=== PATIENT | female | born 1960 | race Caucasian/White ===

== ENCOUNTER → 2016-06-03 | Outpatient (CLI) | payer BC ==
[~2016-06-03] MED LIST: CLONIDINE PO; HCTZ PO; JINTELI 1 MG-51 EACH PO; LORTAB 7.5-5001 TAB PO; LOSARTAN-HCTZ1 EACH PO; MECLIZINE HCL12.5 MG PO; MOBIC PO; PROTONIX PO; ZYRTEC PO
--- NOTE | ~2016-06-03 | US6 ---
[facility] A Service of [facility] RADIOLOGY TEXT RESULTS PATIENT: JENISE WATKINS LOCATION: [facility] : 64 UNIT #: [id number] AGE: [address]: Divine Guy MD SEX: F ORDER DR: [id number] [address] [id number] [id number] O MR#: [id number] Acc #: [id number] NAME: JENISE WATKINS : 1960 SEX: F STUDY DATE/TIME: 06/03/2016 9:17 UNIT: [facility] ROOM: STUDY DESCRIPTION: US Abdominal Limited Attending Physician: Divine Guy M.D. Referring Physician: Divine Guy M.D. Ordering Physician: Divine Guy M.D. Primary Care Physician: Divine Guy M.D. MEDICAL IMAGING REPORT This report is preliminary unless electronic signature is present. EXAM Gallbladder ultrasound 06/03/2016 HISTORY Right upper quadrant abdominal pain and epigastric pain with nausea, vomiting and diarrhea for 2 months. FINDINGS Ultrasound examination of the gallbladder is negative. There is no cholelithiasis, gallbladder wall thickening, or bile duct dilatation. The visualized liver is negative. IMPRESSION Negative gallbladder ultrasound examination. Dictated by... Rolando Hernandez M.D. THIS IS AN ELECTRONICALLY VERIFIED REPORT Rolando Hernandez M.D. at 06/03/2016 4:42 PM KENDRICK/jam TD: 06/03/2016 15:26 JOB #: [id number] MEDICAL IMAGING REPORT Page 1 of 1
== END | disposition home or self-care (01) ==
LOC: SGUS 09:03
DX: R10.13 Epigastric pain (principal)
CPT/HCPCS: 76705